=== PATIENT | male | born 1980 | race Caucasian/White ===

== ENCOUNTER 2019-01-13 07:00 | Day surgery (SDC) | payer OTHER ==
[~2019-01-13] VITALS: Ht 170.2 cm; Wt 68.0 kg
[2019-01-13] MEDS ORDERED: ADVAIR HFA 115/12 GM (07:21)
--- NOTE | 2019-01-13 07:22 | NUR ---
PACIENTE ALERTA Y ORIENTADO X3. REFIERE EL 2018 FUE OPERADO POR LA DRA. LUIS ANGEL ESPINAL POR HEMORROIDES Y MAYR FISURA ANAL. PACIENTE REFIERE DESDE HACE 1 SEMANA COMENZO CON SANGRADO LEVE POR LAS HEMORROIDES Y MUCHO DOLOR ANAL. PACIENTE INDICA QUE HABLO CON LA DRA. LUIS ANGEL ESPINAL Y LE REFIRIO QUE DEBIA SER OPERADO NUE[place]ENT[place].
--- NOTE | 2019-01-13 08:29 | NUR ---
SE RECIBE PT MASCULINO CON MANCHADO RECTAL, LUEGO DE SER EVALUADO POR DR ZENDEJAS SE UBICA A PT EN OBSERVACION POR ORDEN DE DRA Jonathan ESPINAL PARA LLEVARLO A MERISSA DE OPERACIONES. SE ORIENTA A PT SOBRE ORDENES MEDICAS, REFIERE ENTENDER. SE CANALIZA Y SE COLECTAN MUESTRAS BAJO MEDIDAS ASEPTICAS. AREA DE VENOPUNCION TOM DE EDEMA Y ERITEMA. SE COMIENZA IVF, PT TOLERA.
== END 2019-01-13 13:00 | disposition home or self-care (01) ==
LOC: CIR.AMB 07:00 → ER 07:03 → SEC-K 08:42 → O/R 08:42 → EDSTATUS 11:00 → SEC-K 12:08 → O/R 12:08 → CIR.AMB 13:00 → SEC-K 17:55 → O/R 17:55
DX: K62.5 Hemorrhage of anus and rectum (principal); K64.4 Residual hemorrhoidal skin tags; K60.1 Chronic anal fissure; K62.0 Anal polyp

== ENCOUNTER 2019-04-07 11:57 | Inpatient (IN) | payer OTHER ==
[~2019-04-07] VITALS: Ht 170.2 cm; Wt 70.3 kg
[~2019-04-07 11:57] MED LIST: ADVAIR HFA 115/12 GM
[2019-04-07] MEDS ORDERED: ADVAIR 100-501 EACH IH (12:14)
[2019-04-07] MEDS ORDERED: SINGULAIR 5MG5 MG PO (12:14)
== END 2019-04-07 22:10 | disposition home or self-care (01) | DRG 349 ==
LOC: ER 11:57 → SEC-K 13:13 → O/R 13:13
PROVIDERS: ADMIT Colon & Rectal Surgery
PROC: 06BY0ZC Excision of Hemorrhoidal Plexus, Open Approach (ICD-10-PCS; 2019-04-07)
PROC: 0DQQXZZ Repair Anus, External Approach (ICD-10-PCS; principal; 2019-04-07 15:30)
DX: K62.5 Hemorrhage of anus and rectum (principal); K62.89 Other specified diseases of anus and rectum; R15.9 Full incontinence of feces; Z88.6 Allergy status to analgesic agent; K64.4 Residual hemorrhoidal skin tags; K60.0 Acute anal fissure